=== PATIENT | male | born 1960 | race Native Hawaiian/Other Pacific Islander ===

== ENCOUNTER 2018-10-20 00:16 | Emergency (ER) | payer BC ==
[~2018-10-20] VITALS: Ht 175.3 cm; Wt 89.8 kg
[2018-10-20 01:24] LABS: POTASSIUM 3.3 mmol/L (3.6-5.2)
[2018-10-20 01:27] LABS: PLATELET COUNT 183 K/uL (142-355)
[2018-10-20 04:13] VITALS: BP 1147/88; TEMP 98.2
== END 2018-10-20 04:14 | disposition home or self-care (01) ==
LOC: ED 00:16
PROVIDERS: Internal Medicine
DX: N13.2 Hydronephrosis with renal and ureteral calculous obstruction (principal); E87.6 Hypokalemia
CPT/HCPCS: 36415; 80053; 81000; 85027; 96372; 99283; J1170; J2405